=== PATIENT | female | born 1930 | race Caucasian/White ===

== ENCOUNTER 2017-02-22 10:44 | Emergency (ER) | payer MEDICARE ==
[2017-02-22 10:51] VITALS: BP 160/84
--- NOTE | 2017-02-22 10:51 | UC ---
Throat Pain/Nasal Curly HPI - HPI Summary HPI Summary: 86 year old female presents with complains of sore throat and ear pain. - History of Current Complaint Chief Complaint: UCEar Stated Complaint: EAR PAIN SORE THROAT Time Seen by Provider: 02/22/17 10:50 - Allergies/Home Medications Allergies/Adverse Reactions: Allergies Allergy/AdvReac Type Severity Reaction Status Date / Time Penicillins Allergy Unknown Verified 06/12/15 12:47 Reaction Details Sulfamethoxazole Allergy See Comment Verified 06/12/15 12:47 w/Trimethoprim [From ] Tetanus Toxoid Allergy Rash Verified 06/12/15 12:47 PMH/Surg Hx/FS Hx/Imm Hx - Surgical History Surgical History: Yes Surgery Procedure, Year, and Place: partial hysterectomy. bladder "lifted" - Social History Alcohol Use: None Substance Use Type: None Smoking Status (MU): Former Smoker Review of Systems Constitutional: Negative Skin: Negative Eyes: Negative ENT: Sore Throat, Ear Ache, Nasal Discharge Respiratory: Negative Cardiovascular: Negative Gastrointestinal: Negative Genitourinary: Negative Motor: Negative Neurovascular: Negative Musculoskeletal: Negative Neurological: Negative Psychological: Negative All Other Systems Reviewed And Are Negative: Yes Physical Exam Triage Information Reviewed: Yes Vital Signs: Initial Vital Signs Temp 36.6 C 02/22/17 10:48 Pulse 76 02/22/17 10:48 Resp 18 02/22/17 10:48 Pulse Ox 99 02/22/17 10:48 ENT: Positive: Nasal congestion, Tonsillar swelling Throat Pain/Nasal Course/Dx - Differential Dx/Diagnosis Provider Diagnoses: sinusitis Discharge - Discharge Plan Condition: Stable Disposition: HOME Prescriptions: Azithromyxin DOMINGO (NF) [Z-Domingo (Zithromax) 250 mg tabs #6] 2 tab PO .TODAY, THEN 1 DAILY #6 tab Neomyc/Polym/HC 1% OTIC SUSP* [Cortisporin Otic Susp 1%*] 4 drop LEFT EAR QID # 1 btl Patient Education Materials: Pharyngitis (ED), Earache (ED), Sinusitis (ED) Referrals: No Primary Care Phys,NOPCP [Primary Care Provider] - If Needed
== END 2017-02-22 11:08 | disposition home or self-care (01) ==
LOC: UCEAST 10:44
DX: J32.9 Chronic sinusitis, unspecified (principal); Z88.0 Allergy status to penicillin; Z88.2 Allergy status to sulfonamides; Z88.7 Allergy status to serum and vaccine; Z87.891 Personal history of nicotine dependence
CPT/HCPCS: 99212; G0463